=== PATIENT | male | born 1955 | race Caucasian/White ===

== ENCOUNTER 2016-04-25 15:14 | Emergency (ER) | payer BC ==
[2016-04-25] MEDS ORDERED: LIDOCAINE/EPI 1% MDV 20 ML ONE (17:38)
== END 2016-04-25 18:25 | disposition home or self-care (01) ==
LOC: ER 15:14
DX: S01.01XA Laceration without foreign body of scalp, initial encounter (principal); W20.8XXA Other cause of strike by thrown, projected or falling object, initial encounter; Y92.009 Unspecified place in unspecified non-institutional (private) residence as the place of occurrence of the external cause
CPT/HCPCS: 70450